=== PATIENT | male | born 1985 | race American Indian/Alaskan Native ===

== ENCOUNTER 2017-12-13 04:54 | Emergency (ER) | payer SELFPAY ==
[2017-12-13 05:53] VITALS: BP 149/82
[2017-12-13] MEDS ORDERED: MOTRIN PO ONE (05:53)
--- NOTE | 2017-12-13 06:29 | XRay Report ---
FINAL REPORT EXAM: XR CHEST ROUTINE 2V HISTORY: cough and congestion TECHNIQUE: PA and lateral chest radiographs PRIORS: None. FINDINGS: No mediastinal shift. Cardiac silhouette is not enlarged. No pneumothorax, effusion, or focal pulmonary opacity. No acute skeletal finding. IMPRESSION: No focal pulmonary opacity.
[2017-12-13] MEDS ORDERED: DUONEB *Not for PRN Use IH ONE (07:45)
[2017-12-13] MEDS ORDERED: DECADRON IM ONE (07:45)
--- NOTE | 2017-12-13 07:45 | Emergency Department Report ---
Minor Respiratory - HPI Chief Complaint: Upper Respiratory Infection Stated Complaint: CHEST COLD Time Seen by Provider: 12/13/17 07:41 Duration: 1 Day Severity: moderate Minor Respiratory: Yes Rhinorrhea (nasal congestion), Yes Sore Throat (coughing) , Yes Able to Tolerate Fluids, Yes Cough (dry cough), Yes Sick Contacts, Yes Fever, No Ear Pain, No Hemoptysis, No Chest Pain, No Shortness of Breath Other History: This is a 32-year-old male here report that he has nasal congestion and runny nose, drainage of the back of the throat and cough in worse with lying down. He reports that he has sore throat with cough and that is 5/10. Reports fever and chills and that he was exposed to his girlfriend had bronchitis . She reported his symptoms has been going on for about a week now. Denies any chest pain or shortness of breath. [id number] medication not helping and immunization up-to-date. Denies any drooling. Sore throat worse with coughing. No alleviating factor ED Review of Systems ROS: Stated complaint: CHEST COLD Other details as noted in HPI Constitutional: chills, fever Eyes: denies: eye pain, eye discharge, vision change ENT: denies: ear pain, throat pain Respiratory: cough. denies: shortness of breath, SOB with exertion, SOB at rest , stridor, wheezing Cardiovascular: denies: chest pain, palpitations, edema, syncope Gastrointestinal: denies: abdominal pain, nausea, vomiting, diarrhea Musculoskeletal: denies: back pain, joint swelling, arthralgia, myalgia Skin: denies: pruritus, rash, lesions Neurological: numbness, paresthesias. denies: vertigo, headache, abnormal gait ED Past Medical Hx - Past Medical History Previous Medical History?: No - Surgical History Past Surgical History?: No - Family History Family history: hypertension - Social History Smoking Status: Current Every Day Smoker Substance Use Type: None - Medications Home Medications: Home Medications Medication Instructions Recorded Confirmed Last Taken Type Azithromycin [Zithromax Z-JHONNY] 250 mg PO DAILY 5 Days #1 pkg 12/13/17 Unknown Rx Cetirizine HCl [ZyrTEC] 10 mg PO QAM 14 Days #14 capsule 12/13/17 Unknown Rx Fluticasone [Flonase] 1 spray NS QDAY 14 Days #1 bottle 12/13/17 Unknown Rx Ibuprofen [Motrin] 600 mg PO Q8H PRN #12 tablet 12/13/17 Unknown Rx methylPREDNISolone [Medrol Dose 4 mg PO DAILY #1 tab.ds.pk 12/13/17 Unknown Rx Jhonny] Minor Respiratory Exam - Exam General: Vital signs noted. No distress. Alert and acting appropriately. 32-year-old male well-nourished well-developed in no acute distress HEENT: Yes Moist Mucous Membranes, Yes Rhinorrhea (is congestion), No Pharyngeal Erythema, No Pharyngeal Exudates, No Conjuctival Injection, No Frontal Tenderness, No Maxillary Tenderness Ear: Neither TM Bulge, Neither TM Erythema, Neither EAC Pain, Neither EAC Discharge Neck: Yes Supple (full range of motion, no C-spine tenderness), No Adenopathy Lungs: Yes Good Air Exchange, Yes Wheezes (and wheezing upper lung [place]), Yes Cough (dry), No Ronchi, No Stridor, No Labored Respirations, No Retractions, No Use of Accessory Muscles, No Other Abnormal Lung Sounds Heart: No Regular (tachycardia 108), No Murmur Abdomen: Yes Normal Bowel Sounds (normal bowel sounds in all quadrants), No Tenderness, No Peritoneal Signs Skin: No Rash, No Edema Neurologic: Al Alert and oriented 3, normal gait, normal speech Musculoskeletal: Unremarkable. No cce. + 2 pulses in all extremities, no neurovascular compromise ED Course Vital Signs 12/13/17 05:46 Temperature 100 F H Pulse Rate 108 H Respiratory 18 Rate Blood Pressure 149/82 O2 Sat by Pulse 97 Oximetry Vital Signs 12/13/17 12/13/17 12/13/17 05:46 07:57 08:26 Temperature 100 F H 99.2 F Pulse Rate 108 H 78 Pulse Rate [ 74 Posterior Bilateral Throughout] Respiratory 18 100 H Rate Respiratory 18 Rate [Posterior Bilateral Throughout] Blood Pressure 149/82 O2 Sat by Pulse 97 Oximetry - Reevaluation(s) Reevaluation #1: 12/13/17 08:23 Patient given DuoNeb 1 nebulizer treatment and Decadron 10 mg IM in the emergency room. He was given Motrin 800 mg by mouth. Temperature and heart rate is better. ED Medical Decision Making - Radiology Data Radiology results: pending, report reviewed Necessary dictated by radiologist and report reviewed by myself. See report below. Patient: KANCHAN BRODY MR#: [id number] : 1985 Acct:[id number] Age/Sex: 32 / M ADM Date: 12/13/17 Loc: ED Attending Dr: Ordering Physician: JEREMIE PAGE MD Date of Service: 12/13/17 Procedure(s): XR chest routine 2V Accession Number(s): [id number] cc: ED MD KAYLEE Fluoro Time In Minutes: FINAL REPORT EXAM: XR CHEST ROUTINE 2V HISTORY: cough and congestion TECHNIQUE: PA and lateral chest radiographs PRIORS: None. FINDINGS: No mediastinal shift. Cardiac silhouette is not enlarged. No pneumothorax, effusion, or focal pulmonary opacity. No acute skeletal finding. IMPRESSION: No focal pulmonary opacity. Transcribed By: MB Dictated By: NORI GUARDADO MD Electronically Authenticated By: NORI GUARDADO MD Signed Date/Time: 12/13/17627 DD/ 7 TD/TT: 12/13/17627 - Medical Decision Making Is a 32-year-old male well-nourished well-developed in no acute distress. Patient here with cold and cough with fever to be seen. Diagnostics: Chest x-ray reveals no acute cardiopulmonary processes Assessment/plan Upper respiratory with cough and congestion-patient given Decadron 10 mg IM and emergency room and one amp 1 nebulizer with relief of coughing and scant wheezing. Z-Jhonny, Flonase, Medrol Dosepak and Zyrtec Fever in adults-Motrin 800 mg given in triage area with temperature down to 99.2. Encourage hydration and will discharge home with Motrin for sore throat and Discussed the patient is diagnosis, medication and treatment plan, x-ray results. I discussed with him that he needs to follow up with primary care physician in 2-3 days and if he does not have one to follow up with outside Medical Center. Patient stable, vital signs are stable, low-grade fever, he said he is feeling better no pain at present. Discharge home with prescription for Medrol Dosepak, Z-Jhonny, Flonase, Zyrtec and Motrin. - Differential Diagnosis PNA, bronchitis, viral syndrome, sinusitis, URI with cough and congestion Critical care attestation.: If time is entered above; I have spent that time in minutes in the direct care of this critically ill patient, excluding procedure time. ED Disposition Clinical Impression: URI with cough and congestion Fever Qualifiers: Fever type: unspecified Qualified Code(s): R50.9 - Fever, unspecified Disposition: DC- TO HOME OR SELFCARE Is pt being admited?: No Does the pt Need Aspirin: No Condition: Stable Instructions: Fever in Adults (ED), Upper Respiratory Infection (ED), Acute Cough (ED) Additional Instructions: Please take antibiotic as prescribed Follow-up with primary care physician in 2-3 days If your condition worsens to include difficulty breathing, swallowing, chest pain, nausea and vomiting and fever, please return to the emergency room [facility]. Take Medrol Dosepak, Zyrtec and Flonase to relieve congestion Increasing fluid intake Use nasal saline wash to flush and nostrils. Referrals: PRIMARY CARE, [Primary Care Provider] - 2-3 Days Forms: Work/School Release Form(ED)
== END 2017-12-13 08:46 | disposition home or self-care (01) ==
LOC: ED 04:54
DX: J06.9 Acute upper respiratory infection, unspecified (principal); F17.200 Nicotine dependence, unspecified, uncomplicated
CPT/HCPCS: 71046; 94640; 96372; 99283; J1100